=== PATIENT | female | born 1955 | race Caucasian/White ===

== ENCOUNTER 2018-09-03 12:59 | Emergency (ER) | payer OTHER ==
[~2018-09-03] VITALS: Ht 162.6 cm; Wt 67.6 kg
[2018-09-03 13:05] VITALS: BP 124/84
[2018-09-03] MEDS: CLINDAMYCIN 600 MG/4 ML VIAL IM ONE (16:12)
[2018-09-03] MEDS: DEXAMETHASONE 10 MG/ML VIAL IM ONE (16:12)
[2018-09-03 16:18] VITALS: BP 125/76
== END 2018-09-03 16:18 | disposition home or self-care (01) ==
LOC: MED 12:59
DX: J03.90 Acute tonsillitis, unspecified (principal)
CPT/HCPCS: 96372; 99284; J1100; J3490

== ENCOUNTER 2019-01-13 17:22 | Emergency (ER) | payer OTHER ==
[~2019-01-13] VITALS: Ht 152.4 cm; Wt 70.3 kg
[2019-01-13 17:30] VITALS: BP 119/85
--- NOTE | 2019-01-13 17:34 | NUR ---
PATIENT STATED SHE IS ALLERGIC TO SOME PINK ANTIBIOTIC. UNKNWN NAME
--- NOTE | 2019-01-13 17:35 | NUR ---
AMB. TO BED #9
[2019-01-13] MEDS ORDERED: SULFAMETH/TRIMETH DS 800/160MG 1 TAB PO ONE (17:45)
[2019-01-13] MEDS ORDERED: PHENAZOPYRIDINE 100 MG TAB PO ONE (17:45)
[2019-01-13 18:02] VITALS: BP 119/85
--- NOTE | 2019-01-13 18:03 | NUR ---
Patient discharged with v/s stable. Written and verbal after care instructions given and explained. Patient alert, oriented and verbalized understanding of instructions. Ambulatory with steady gait. All questions addressed prior to discharge. ID band removed. Patient advised to follow up with PMD. Rx of PYRIDIUM, AND BACTRIM given. Patient educated on indication of medication including possible reaction and side effects. Opportunity to ask questions provided and answered.
== END 2019-01-13 18:03 | disposition home or self-care (01) ==
LOC: MED 17:22
DX: N39.0 Urinary tract infection, site not specified (principal)
CPT/HCPCS: 81002; 99283

== ENCOUNTER 2019-06-07 19:35 | Emergency (ER) | payer OTHER ==
[~2019-06-07] VITALS: Ht 162.6 cm; Wt 66.7 kg
[2019-06-07 19:42] VITALS: BP 134/84
--- NOTE | 2019-06-07 19:45 | NUR ---
Pt taken to chair E.
--- NOTE | 2019-06-07 20:23 | NUR ---
PATIENT LEFT WITHOUT BEING SEEN BY DIAMANTE CLARK. NO FURTHER CARE PROVIDED FOR PATIENT.
--- NOTE | 2019-06-07 20:23 | NUR ---
Sajnay orozco in ED - 06/07/19 at 2259 by WALTER PATIENT ELOPED FROM FACILITY. DISCHARGE INSTRUCTIONS NOT GIVEN TO PATIENT. AMBER BOBBY NOTIFIED.
== END 2019-06-07 20:13 | disposition left against medical advice (07) ==
LOC: MED 19:35
DX: G47.00 Insomnia, unspecified (principal); Z53.21 Procedure and treatment not carried out due to patient leaving prior to being seen by health care provider